=== PATIENT | male | born 2000 | race Caucasian/White ===

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

== ENCOUNTER 2018-04-20 00:09 | Emergency (ER) | payer OTHER, SELFPAY | END 2018-04-20 00:40 | disposition home or self-care (01) | LOC: MADERS 00:09 | DX: S61.211A Laceration without foreign body of left index finger without damage to nail, initial encounter (principal); G43.909 Migraine, unspecified, not intractable, without status migrainosus; J45.909 Unspecified asthma, uncomplicated; F17.210 Nicotine dependence, cigarettes, uncomplicated; W27.4XXA Contact with kitchen utensil, initial encounter | CPT/HCPCS: 12001 ==

== ENCOUNTER 2018-05-31 21:19 | Emergency (ER) | payer SELFPAY ==
[2018-05-31] MEDS ORDERED: predniSONE 10 MG TAB ONE (21:52)
[2018-05-31] MEDS ORDERED: predniSONE 20 MG TAB ONE (21:52)
[2018-05-31] MEDS ORDERED: Albuterol Sulfate 2.5 mg/0.5 ml Neb ONE ×2 (21:52→21:55)
== END 2018-05-31 22:11 | disposition home or self-care (01) ==
LOC: MADERS 21:19
DX: J45.901 Unspecified asthma with (acute) exacerbation (principal); F17.210 Nicotine dependence, cigarettes, uncomplicated; G43.909 Migraine, unspecified, not intractable, without status migrainosus; Z79.899 Other long term (current) drug therapy
CPT/HCPCS: J7506; J7512; J7611

== ENCOUNTER 2018-06-07 15:57 | Emergency (ER) | payer SELFPAY ==
[2018-06-07] MEDS ORDERED: Azithromycin 250 MG TAB ONE (17:01)
== END 2018-06-07 17:15 | disposition home or self-care (01) ==
LOC: MADERS 15:57
DX: J45.901 Unspecified asthma with (acute) exacerbation (principal); F17.290 Nicotine dependence, other tobacco product, uncomplicated; G43.909 Migraine, unspecified, not intractable, without status migrainosus; Z79.899 Other long term (current) drug therapy
CPT/HCPCS: 99283

== ENCOUNTER 2018-08-11 00:26 | Emergency (ER) | payer SELFPAY ==
[2018-08-11] MEDS ORDERED: predniSONE 20 MG TAB ONE (01:17)
== END 2018-08-11 01:25 | disposition home or self-care (01) ==
LOC: MADERS 00:26
DX: J45.909 Unspecified asthma, uncomplicated (principal); F17.210 Nicotine dependence, cigarettes, uncomplicated
CPT/HCPCS: J7506; J7620

== ENCOUNTER 2018-10-13 14:06 | Emergency (ER) | payer SELFPAY | END 2018-10-13 17:44 | disposition left against medical advice (07) | LOC: MADERS 14:06 | DX: Z53.21 Procedure and treatment not carried out due to patient leaving prior to being seen by health care provider (principal) ==

== ENCOUNTER 2019-02-25 01:41 | Emergency (ER) | payer SELFPAY ==
[2019-02-25] MEDS ORDERED: HYDROcodone/Acetaminophen 5/325 mg Tablet ONE (02:09)
[2019-02-25] MEDS ORDERED: Ondansetron ODT 4 MG TAB ONE (02:09)
[2019-02-25 02:29] LABS: Bilirubin Negative (Negative); Blood, Urine Negative (Negative); Clarity Cloudy (Clear); Glucose, Urine (Dipstick) Negative (Negative); Leukocyte Negative (Negative); Nitrite Negative (Negative); Protein, Urine (Dipstick) Trace mg/dL (Neg-Trace); Specific Gravity, Urine 1.015 (1.005-1.030); Urobilinogen 0.2 mg/dL (0.2-1.0); pH, Urine 8.5 (5.0-9.0)
[2019-02-25 02:34] LABS: White Blood Cell (WBC) Count 8.5 thou/uL (4.8-10.8)
[2019-02-25 02:36] LABS: #Lymphocytes 2.8 thou/uL (1.20-3.40); #Monocytes 0.7 thou/uL (0.11-0.59); #Neutrophils 4.7 thou/uL (1.40-6.50); %Basophils 0.9 % (0.0-1.0); %Eosinophils 2.5 % (0.0-10.0); %Lymphocytes 32.6 % (28.0-48.0); %Monocytes 8.7 % (0.0-4.0); %Neutrophils 55.4 % (31.0-61.0); Hemoglobin 15.8 g/dL (14.0-18.0); Mean Corpuscular HGB CONC 32.7 g/dL (32.0-36.0); Mean Corpuscular Hemoglobin 27.3 pg (25.0-35.0); Mean Corpuscular Volume 83.6 fL (78.0-98.0); Mean Platelet Volume 6.4 fL (7.4-10.4); Platelet Count 271 thou/uL (130-400); RBC Distribution Width 11.4 % (11.5-14.5)
[2019-02-25 02:37] LABS: #Basophils 0.1 thou/uL (0.0-0.2); #Eosinphils 0.2 thou/uL (0.0-0.7)
[2019-02-25 02:39] LABS: ALT (SGPT) 17 U/L (8-55); AST (SGOT) 19 U/L (5-34); Albumin 4.7 g/dL (3.5-5.0); Alkaline Phosphatase 116 U/L (Less than 750); Anion Gap 13 mmol/L (10-20); BUN (Urea Nitrogen) 15 mg/dL (8.9-20.6); Bilirubin, Total 0.4 mg/dL (0.2-1.2); Calc. Creatinine Clearance 0 mL/min (70-130); Carbon Dioxide 24 mmol/L (22-29); Chloride 106 mmol/L (98-107); Estimated GFR-MDRD Greater than 90; Globulin 2.9 g/dL (2.4-3.5); Glucose 92 mg/dL (70-105); Lipase 25 U/L (8-78); Potassium 3.3 mmol/L (3.5-5.1); Protein, Total 7.6 g/dL (6.0-8.3); Sodium 140 mmol/L (136-145)
--- NOTE | 2019-02-25 07:20 | CT ---
PRELIMINARY REPORT/[facility]/EMERGENCY AFTER HOURS PROCEDURE: EXAM: CT Abdomen and Pelvis Without Contrast EXAM DATE/TIME: 02/25/2019 2:24 AM CLINICAL HISTORY: 18 years old, male; Abdominal pain; Periumbilical; Patient HX: Stomach pain, back pain, nausea, numbness HX allergies to shellfish products TECHNIQUE: Imaging protocol: Axial computed tomography images of the abdomen and pelvis without contrast. Radiation optimization: All CT scans at this facility use at least one of these dose optimization techniques: automated exposure control; mA and/or kV adjustment per patient size (includes targeted exams where dose is matched to clinical indication); or iterative reconstruction. COMPARISON: No relevant prior studies available. FINDINGS: ABDOMEN: Liver: No acute findings. No mass. Gallbladder and bile ducts: No calcified stones. No ductal dilation. Pancreas: No acute findings. No ductal dilation. Spleen: No acute findings. No splenomegaly. Adrenals: No acute findings. No mass. Kidneys and ureters: No obstructing stone. No hydronephrosis. Stomach and bowel: No obstruction. Appendix: No evidence of appendicitis. PELVIS: Bladder: No stones. Reproductive: No acute findings. ABDOMEN and PELVIS: Intraperitoneal space: No free air. No significant fluid collection. Bones/joints: No acute fracture. Soft tissues: No acute findings. Vasculature: No abdominal aortic aneurysm. Lymph nodes: No significant adenopathy. Small and few prominent mesenteric lymph nodes. IMPRESSION: No acute findings. Thank you for allowing us to participate in the care of your patient. Dictated and Authenticated by: Sukhdev Wilcox MD 02/25/2019 3:10 AM Central Time ([place] & [place]) FINAL REPORT EMERGENCY AFTER HOURS ABDOMEN AND PELVIC CT SCAN WITHOUT IV CONTRAST: DATE: 02/25/19 TIME: 0226 hours IMPRESSION: Small lymph nodes in the right lower quadrant mesentery, nonspecific. No CT evidence for acute append icitis. No renal calculus or obstruction. This report is in agreement with a preliminary report given by [facility]. Transcribed Date/Time: 02/25/2019 8:14 AM
== END 2019-02-25 03:49 | disposition home or self-care (01) ==
LOC: MADERS 01:41
DX: R11.0 Nausea (principal); R10.9 Unspecified abdominal pain; R20.0 Anesthesia of skin; J45.909 Unspecified asthma, uncomplicated; F17.210 Nicotine dependence, cigarettes, uncomplicated; Z79.51 Long term (current) use of inhaled steroids
CPT/HCPCS: 74176; 80053; 81003; 83690; 85025; Q0162

== ENCOUNTER 2019-04-29 16:16 | Emergency (ER) | payer BC ==
--- NOTE | 2019-04-29 17:41 | RAD ---
CHEST ONE VIEW: 04/29/19 HISTORY: Cough. COMPARISON: Chest radiograph from 2011. FINDINGS: Lungs are clear. No pneumothorax. No effusion. Cardiac silhouette and mediastinal contours are within normal limits. No acute osseous abnormality. IMPRESSION: No acute intrathoracic abnormality. POS: HOME
[2019-04-29] MEDS ORDERED: cefTRIAXone\\ROCEPHIN 1 GM VIAL ONE (17:42)
[2019-04-29] MEDS ORDERED: Lidocaine 1% 20 ML MDV ONE (17:42)
== END 2019-04-29 18:07 | disposition home or self-care (01) ==
LOC: MADERS 16:16
DX: J20.9 Acute bronchitis, unspecified (principal); J45.909 Unspecified asthma, uncomplicated; G43.909 Migraine, unspecified, not intractable, without status migrainosus; Z79.51 Long term (current) use of inhaled steroids; Z87.891 Personal history of nicotine dependence
CPT/HCPCS: 71045; 96372; J0696; J1040; J2001; J7620

== ENCOUNTER 2019-06-30 23:18 | Emergency (ER) | payer BC | END 2019-07-01 00:53 | disposition home or self-care (01) | LOC: MADERS 23:18 → EEVIPCON 23:18 → MADERS 07-01 00:53 | DX: B34.9 Viral infection, unspecified (principal); J45.909 Unspecified asthma, uncomplicated; G43.909 Migraine, unspecified, not intractable, without status migrainosus; F17.290 Nicotine dependence, other tobacco product, uncomplicated | CPT/HCPCS: 87804; 99283 ==

== ENCOUNTER 2019-08-13 00:52 | Emergency (ER) | payer BC | END 2019-08-13 01:16 | disposition home or self-care (01) | LOC: MADERS 00:52 | DX: J20.9 Acute bronchitis, unspecified (principal); R07.89 Other chest pain; G43.909 Migraine, unspecified, not intractable, without status migrainosus; J45.909 Unspecified asthma, uncomplicated; Z87.891 Personal history of nicotine dependence; Z79.51 Long term (current) use of inhaled steroids | CPT/HCPCS: 99284 ==

== ENCOUNTER 2019-11-24 10:35 | Emergency (ER) | payer BC ==
[2019-11-24] MEDS ORDERED: Ondansetron ODT 4 MG TAB ONE (11:09)
[2019-11-24] MEDS ORDERED: Acetaminophen 500 MG TAB ONE (11:09)
== END 2019-11-24 11:32 | disposition home or self-care (01) ==
LOC: MADERS 10:35
DX: G43.909 Migraine, unspecified, not intractable, without status migrainosus (principal); F17.210 Nicotine dependence, cigarettes, uncomplicated; J45.909 Unspecified asthma, uncomplicated
CPT/HCPCS: 99283; Q0162

== ENCOUNTER 2021-07-03 22:56 | Emergency (ER) | payer BC, SELFPAY ==
[2021-07-04] MEDS ORDERED: Naproxen 500 MG TAB ONE (00:22)
[2021-07-04] MEDS ORDERED: Ondansetron ODT 4 MG TAB ONE (00:22)
== END 2021-07-04 00:29 | disposition home or self-care (01) ==
LOC: MADERS 22:56
DX: M54.42 Lumbago with sciatica, left side (principal); J45.909 Unspecified asthma, uncomplicated; F17.210 Nicotine dependence, cigarettes, uncomplicated
CPT/HCPCS: 99283; Q0162

== ENCOUNTER 2021-07-18 23:01 | Emergency (ER) | payer SELFPAY ==
[2021-07-18] MEDS ORDERED: Albuterol 200 PUFF (6.7GM INHALER) ONE (23:40)
[2021-07-19 15:47] LABS: SARS-CoV-2 PCR by NAA DETECTED (NotDetected)
== END 2021-07-19 00:41 | disposition home or self-care (01) ==
LOC: MADERS 23:01
DX: U07.1 COVID-19 (principal); J45.909 Unspecified asthma, uncomplicated; G43.909 Migraine, unspecified, not intractable, without status migrainosus; F17.200 Nicotine dependence, unspecified, uncomplicated
CPT/HCPCS: 71046; U0003; U0005

== ENCOUNTER 2022-03-15 23:05 | Emergency (ER) | payer BC, SELFPAY | END 2022-03-16 | disposition home or self-care (01) | LOC: MADERS 23:05 | DX: M25.511 Pain in right shoulder (principal); G43.909 Migraine, unspecified, not intractable, without status migrainosus; F17.210 Nicotine dependence, cigarettes, uncomplicated ==

== ENCOUNTER 2022-09-06 18:57 | Emergency (ER) | payer BC ==
[2022-09-06] MEDS ORDERED: Ondansetron ODT 4 MG TAB ONE (19:48)
[2022-09-06] MEDS ORDERED: Albuterol 200 PUFF (6.7GM INHALER) ONE (19:48)
== END 2022-09-06 20:56 | disposition home or self-care (01) ==
LOC: MADERS 18:57
DX: J06.9 Acute upper respiratory infection, unspecified (principal); G43.909 Migraine, unspecified, not intractable, without status migrainosus; F17.210 Nicotine dependence, cigarettes, uncomplicated
CPT/HCPCS: 87804; Q0162

== ENCOUNTER 2022-09-22 13:45 | Emergency (ER) | payer BC ==
[2022-09-22] MEDS ORDERED: predniSONE 20 MG TAB ONE (18:25)
[2022-09-22] MEDS ORDERED: Albuterol 200 PUFF (6.7GM INHALER) ONE (18:26)
[2022-09-22] MEDS ORDERED: predniSONE 10 MG TAB ONE (18:26)
== END 2022-09-22 18:36 | disposition home or self-care (01) ==
LOC: MADERS 13:45
DX: J06.9 Acute upper respiratory infection, unspecified (principal); J45.901 Unspecified asthma with (acute) exacerbation; G43.909 Migraine, unspecified, not intractable, without status migrainosus; F17.210 Nicotine dependence, cigarettes, uncomplicated; Z20.822 Contact with and (suspected) exposure to COVID-19; Z79.899 Other long term (current) drug therapy
CPT/HCPCS: 87081; 87430; 87804; J7512; U0003; U0005

== ENCOUNTER 2023-01-01 15:19 | Emergency (ER) | payer BC ==
[2023-01-01] MEDS ORDERED: Dexamethasone 4 MG TAB ONE (16:10)
== END 2023-01-01 17:21 | disposition home or self-care (01) ==
LOC: MADERS 15:19
DX: J02.9 Acute pharyngitis, unspecified (principal); J45.909 Unspecified asthma, uncomplicated; F17.210 Nicotine dependence, cigarettes, uncomplicated; Z79.899 Other long term (current) drug therapy
CPT/HCPCS: 87081; 87430; 87804; 99283; J8540

== ENCOUNTER 2023-02-20 14:45 | Emergency (ER) | payer BC ==
[2023-02-20] MEDS ORDERED: Boostrix 0.5 ML (Tdap) VIAL (>/=7 yrs of age) ONE (15:17)
== END 2023-02-20 15:33 | disposition home or self-care (01) ==
LOC: MADERS 14:45
DX: S61.211A Laceration without foreign body of left index finger without damage to nail, initial encounter (principal); Z23 Encounter for immunization; F17.210 Nicotine dependence, cigarettes, uncomplicated; J45.909 Unspecified asthma, uncomplicated; Z79.899 Other long term (current) drug therapy; W26.0XXA Contact with knife, initial encounter
CPT/HCPCS: 12001; 90471; 90715

== ENCOUNTER 2023-07-23 14:34 | Emergency (ER) | payer BC ==
[2023-07-23] MEDS ORDERED: Dicyclomine 20 MG/2 ML VIAL ONE (14:49)
[2023-07-23] MEDS ORDERED: Ketorolac Tromethamine 30 MG/ML VIAL ONE (14:49)
[2023-07-23] MEDS ORDERED: Ondansetron PF 4 MG/2 ML Vial ONE (14:49)
[2023-07-23] MEDS ORDERED: Lactated Ringer's 1,000 ML ONE (14:49)
[2023-07-23 15:08] LABS: #Basophils 0.1 thou/uL (0.0-0.2); #Eosinphils 0.2 thou/uL (0.0-0.7); #Lymphocytes 1.5 thou/uL (1.20-3.40); #Monocytes 0.6 thou/uL (0.11-0.59); #Neutrophils 4.3 thou/uL (1.40-6.50); %Basophils 0.9 % (0.0-1.0); %Eosinophils 3.2 % (0.0-10.0); %Lymphocytes 22.7 % (21.0-51.0); %Monocytes 9.5 % (0.0-10.0); %Neutrophils 63.8 % (42.0-75.0); Hematocrit 48.4 % (42.0-52.0); Hemoglobin 16.2 g/dL (14.0-18.0); Mean Corpuscular HGB CONC 33.3 g/dL (32.0-36.0); Mean Corpuscular Volume 90.1 fl (78.0-98.0); Platelet Count 208 10x3/uL (130-400); RBC Distribution Width 12.5 % (11.5-14.5); Red Blood Cell (RBC) Count 5.38 mill/uL (4.70-6.10); White Blood Cell (WBC) Count 6.8 10x3/uL (4.8-10.8)
[2023-07-23 15:22] LABS: ALT (SGPT) 62 U/L (8-55); AST (SGOT) 32 U/L (5-34); Albumin 4.6 g/dL (3.5-5.0); Alkaline Phosphatase 109 U/L (40-110); Anion Gap 12 mmol/L (10-20); BUN (Urea Nitrogen) 15 mg/dL (8.9-20.6); Bilirubin, Total 0.4 mg/dL (0.2-1.2); CK (CPK) 127 U/L (30-200); Calc. Creatinine Clearance 0 mL/min (70-130); Calcium 9.5 mg/dL (7.8-10.44); Carbon Dioxide 27 mmol/L (22-29); Chloride 102 mmol/L (98-107); Estimated GFR 118; Globulin 2.9 g/dL (2.4-3.5); Glucose 98 mg/dL (70-105); Lipase 14 U/L (8-78); Magnesium 2.2 mg/dL (1.6-2.6); Potassium 3.4 mmol/L (3.5-5.1); Protein, Total 7.5 g/dL (6.0-8.3); Sodium 138 mmol/L (136-145)
[2023-07-23 15:23] LABS: Troponin I Less than 0.010 ng/mL (< 0.028)
[2023-07-23] MEDS ORDERED: Potassium Chloride 20 MEQ TAB ONE (15:28)
== END 2023-07-23 15:56 | disposition home or self-care (01) ==
LOC: MADERS 14:34
DX: R11.2 Nausea with vomiting, unspecified (principal); R19.7 Diarrhea, unspecified; E87.6 Hypokalemia; R74.01 Elevation of levels of liver transaminase levels; F17.210 Nicotine dependence, cigarettes, uncomplicated; Z20.822 Contact with and (suspected) exposure to COVID-19
CPT/HCPCS: 71045; 80053; 82550; 83605; 83690; 83735; 84484; 85025; 87040; 87635; 87804; 93005; 94760; 96361; 96372; 96374; 96375; J1885; J2405; J7120

== ENCOUNTER 2023-10-27 17:59 | Emergency (ER) | payer BC ==
[2023-10-27] MEDS ORDERED: Ibuprofen 800 MG TAB ONE (18:18)
[2023-10-27] MEDS ORDERED: predniSONE 20 MG TAB ONE ×2 (18:54→18:57)
[2023-10-27] MEDS ORDERED: Ipratropium/Albuterol 3 ML NEB ONE (18:54)
[2023-10-27 19:01] LABS: SARS-CoV-2 NAA Rapid Test Not Detected (NotDetected)
== END 2023-10-27 19:28 | disposition home or self-care (01) ==
LOC: MADERS 17:59
DX: H66.91 Otitis media, unspecified, right ear (principal); H73.91 Unspecified disorder of tympanic membrane, right ear; J45.901 Unspecified asthma with (acute) exacerbation; F17.210 Nicotine dependence, cigarettes, uncomplicated
CPT/HCPCS: 71045; 87804; J7512; J7620; U0002

== ENCOUNTER 2024-04-12 16:26 | Emergency (ER) | payer BC, OTHER ==
[2024-04-12] MEDS ORDERED: Ketorolac Tromethamine 30 MG (1 mL) VIAL ONE (17:04)
[2024-04-12] MEDS ORDERED: diphenhydrAMINE 50 MG/ML VIAL ONE (17:04)
[2024-04-12] MEDS ORDERED: Sodium Chloride 0.9% 1,000 ML ONE (17:04)
[2024-04-12] MEDS ORDERED: Metoclopramide HCl 10 MG (2 mL) VIAL ONE (17:04)
== END 2024-04-12 19:23 | disposition home or self-care (01) ==
LOC: MADERS 16:26
DX: G43.909 Migraine, unspecified, not intractable, without status migrainosus (principal); F17.210 Nicotine dependence, cigarettes, uncomplicated; F17.290 Nicotine dependence, other tobacco product, uncomplicated
CPT/HCPCS: 96374; 96375; J1200; J1885; J2765; J7050